=== PATIENT | male | born 1975 | race African-American/Black ===

== ENCOUNTER 2016-06-26 20:47 | Emergency (ER) | payer MEDICARE ==
[~2016-06-26 20:47] MED LIST: ASAB PO; C25 PO; C5; C5 PO; CARDCD120 PO; CARDCD240 PO; CARDU2 PO; CATAPRES3 TOP; CORDARONE PO; COREG12 PO; COREG25 PO; COREG3 PO; COUMADIN10 MG PO; COZAAR100 MG PO; DEMA20 PO; DIOVAN320 MG PO; EXFORGE1 TA3 PO; FLEX PO; HALF81 PO; IMDUR30 PO; LISINOPRIL40 MG PO; LONITEN10 PO; LOP100 PO; LOP50 PO; MICROZIDE PO; NEPHROCAPS PO; NORV10 PO; NORV5 PO; PHOSLO PO; PRILOSEC40 MG PO; PRIN20 PO; PROTONIX PO; RENVELA800 MG PO; ROCALTROL0.25 MCG OR; SENSIPAR90 MG PO; SPIRO25 PO; SPIRO50 PO; TEKTURNA300 MG PO; UNK BP MED; UROXATRAL PO; VANCOCIN HCL125 MG PO; VITAMIN D1000 UNI1 PO; VITAMIN D400 UNI1 PO; ZESTORETIC1 TA1 PO; [UNRECOGNIZED DRUG - OTHER] INF; [UNRECOGNIZED DRUG - REMARK]
[2016-06-26 22:40] LABS: BASOPHILS 1.6 %; BASOPHILS ABSOLUTE 0.08 10/3/uL (0.0-0.16); EOSINOPHILS 3.2 %; EOSINOPHILS ABSOLUTE 0.16 10/3/uL (0.0-0.53); ER CBC TAT 0 Hrs 08 Mins; HEMOGLOBIN 10.7 g/dL (13.6-17.8); LYMPHOCYTES 27.9 %; LYMPHOCYTES ABSOLUTE 1.39 10/3/uL (0.67-4.30); MEAN CORPUS HGB CONC 33.1 g/dL (32.0-36.0); MEAN CORPUSCULAR HEMOGLOB 29.2 pg (26.0-34.0); MEAN PLATELET VOLUME 10.3 fL (9.2-13.0); MONOCYTES 12.7 %; MONOCYTES ABSOLUTE 0.63 10/3/uL (0.21-1.20); NEUTROPHILS 54.6 %; NEUTROPHILS ABSOLUTE 2.72 10/3/uL (2.02-8.40); PLATELET COUNT 176 10/3/uL (150-400); RBC DISTRIBUTION WIDTH 18.3 % (12.0-16.0); RED CELL COUNT 3.67 10/6/uL (4.7-6.1)
[2016-06-26 22:41] LABS: HEMATOCRIT 32.3 % (40.0-51.0); MANUAL DIFF NO %
[2016-06-26 22:47] LABS: INTERNATIONAL NORMAL RATI 2.5 UNITS (-); PROTIME (NOT ORD) 26.9 SEC (12.0-14.5)
[2016-06-26 22:48] LABS: PARTIAL THROMBO TIME 44.3 SEC (22.5-37.2)
[2016-06-26 22:56] LABS: CALCIUM, SERUM 8.3 MG/DL (8.5-10.4); CHEST PAIN PROFILE TAT 0 Hrs 24 Mins; CHLORIDE, SERUM 97 MMOL/L (96-112); SODIUM, SERUM 139 MMOL/L (135-148); TROPONIN I 0.03 NG/ML (<0.05)
[2016-06-26 22:58] LABS: BUN (BLOOD UREA NITROGEN) 32 MG/DL (6-23); CO2 (CARBON DIOXIDE) 30 MMOL/L (24-34); GFR AFRICAN AMERICAN 6 ML/MIN (>=60); GFR NON AFRICAN AMERICAN 5 ML/MIN (>=60); GLUCOSE, SERUM 85 MG/DL (60-99); POTASSIUM, SERUM 3.6 MMOL/L (3.5-5.3)
[2016-06-27 00:59] LABS: ALBUMIN 3.5 G/DL (3.5-5.0); SGOT(AST) 25 U/L (5-40); SGPT(ALT) 54 U/L (5-65); TOTAL PROTEIN 7.8 G/DL (6.0-8.5)
[2016-06-27 01:02] LABS: ALKALINE PHOSPHATASE 90 U/L (45-117); DIRECT BILIRUBIN 0.3 MG/DL (0.0-0.4); INDIRECT BILIRUBIN(NOT ORDER) 0.7 MG/DL (0.1-0.9)
[2016-06-30] MEDS ORDERED: CELEXA20 PO (14:30)
[2016-06-30] MEDS ORDERED: PRIN20 PO (14:31)
[2016-06-30] MEDS ORDERED: TESS PO (14:31)
== END 2016-06-27 02:08 | disposition home or self-care (01) ==
LOC: ER 20:47
PROVIDERS: Emergency Medicine
DX: R07.9 Chest pain, unspecified (principal); R00.0 Tachycardia, unspecified; I13.0 Hypertensive heart and chronic kidney disease with heart failure and stage 1 through stage 4 chronic kidney disease, or unspecified chronic kidney disease; N18.9 Chronic kidney disease, unspecified; I50.9 Heart failure, unspecified; K21.9 Gastro-esophageal reflux disease without esophagitis; I48.91 Unspecified atrial fibrillation; Z87.442 Personal history of urinary calculi; Z99.2 Dependence on renal dialysis; Z88.0 Allergy status to penicillin; Z88.5 Allergy status to narcotic agent; Z88.6 Allergy status to analgesic agent; Z91.09 Other allergy status, other than to drugs and biological substances; Z79.01 Long term (current) use of anticoagulants; Z79.899 Other long term (current) drug therapy
CPT/HCPCS: 71020; 80048; 80076; 83735; 84484; 85025; 85610; 85730; 93005; 93225; 99285